=== PATIENT | female | born 1965 | race Caucasian/White ===

== ENCOUNTER 2016-09-16 12:17 | Inpatient (IN) | payer BC, SELFPAY ==
--- NOTE | ~2016-09-16 | EGD ---
EGD REPORT [facility] [address] [place] [address] NAME: KAREN STEIN : [birth year] STATUS : ADM IN PAT#: [id number] AGE: 51 ADM/REG DATE : 09/16/16 MR#: [id number] REPORT SERV DATE: 09/19/16 DICTATED BY: DEJUAN GORE DATE: 09/19/16 REPORT STATUS : Draft TRANSCRIBED BY: [facility] DATE: 09/19/16 Endoscopy Center Patient Name: Karen Stein Date of : 1965 Attending MD: DEJUAN GORE MD Procedure Date No Time: 09/19/2016 Procedure: Upper GI endoscopy Indications: Place PEG due to dysphagia Referring MD: CYN ARRIETA Medicines: Monitored Anesthesia Care Complications: No immediate complications. Estimated blood loss: Minimal. Procedure: Pre-Anesthesia Assessment: - ASA Grade Assessment: III - A patient with severe systemic disease. After obtaining informed consent, the endoscope was passed under direct vision. Throughout the procedure, the patient's blood pressure, pulse, and oxygen saturations were monitored continuously. The GIF [id number] was introduced through the mouth, and advanced to the second part of duodenum. The upper GI endoscopy was accomplished without difficulty. The patient tolerated the procedure well. Findings: No gross lesions were noted in the entire esophagus. No gross lesions were noted in the entire examined stomach. The patient was placed in the supine position for PEG placement. The stomach was insufflated to appose gastric and abdominal gao. A site was located in the body of the stomach with good transillumination and manual external pressure for placement. The abdominal wall was marked and prepped in a sterile manner. The area was anesthetized with 5 mL of 1% lidocaine. The trocar needle was introduced through the abdominal wall and into the stomach under direct endoscopic view. A snare was introduced through the endoscope and opened in the gastric lumen. The guide wire was passed through the trocar and into the open snare. The snare was closed around the guide wire. The endoscope and snare were removed, pulling the wire out through the mouth. A skin incision was made at the site of needle insertion. The externally removable 20 Fr EndoVive Safety gastrostomy tube was lubricated. The G-tube was passed over the guide wire through the mouth, and into the stomach. The trocar needle was removed, and the gastrostomy tube was pulled out from the stomach through the skin. The guide wire was removed, and the external bumper attached to the gastrostomy tube. The feeding tube was then cut to an appropriate length. The final position of the gastrostomy tube was confirmed by skin EGD REPORT [address] [place]. [address] NAME: KAREN STEIN : [birth year] STATUS : ADM IN [facility]#: [id number] AGE: 51 ADM/REG DATE : 09/16/16 MR#: [id number] REPORT SERV DATE: 09/19/16 DICTATED BY: DEJUAN GORE DATE: 09/19/16 REPORT STATUS : Draft TRANSCRIBED BY: [employer] DATE: 09/19/16 marking noted to be 1.5 cm at the external bumper. The final tension and compression of the abdominal wall by the PEG tube and external bumper were checked and revealed that the bumper was loose and lightly touching the skin. The feeding tube was capped, and the tube site was cleaned and dressed. One non-bleeding cratered duodenal ulcer with no stigmata of bleeding was found in the duodenal bulb. The lesion was 5 mm in largest dimension. Impression: - One small duodenal ulcer with clean base. - An externally removable PEG placement was successfully completed. Recommendation: - Please follow the post-PEG recommendations including: antibiotic ointment to site, change dressing once per day, clean site with soap and water daily and dry thoroughly, remove dressing after 2 weeks, NPO x4 hrs then water today, may use PEG today for meds and water and may use PEG tomorrow for feedings. - Use Protonix (pantoprazole) 40 mg PO BID for 6 weeks. Procedure Code(s): --- Professional --- 49779, Esophagogastroduodenoscopy, flexible, transoral; with directed placement of percutaneous gastrostomy tube Diagnosis Code(s): --- Professional --- K26.9, Duodenal ulcer, unspecified as acute or chronic, without hemorrhage or perforation R13.10, Dysphagia, unspecified Z43.1, Encounter for attention to gastrostomy CPT copyright 2013 [employer]. All rights reserved. The codes documented in this report are preliminary and upon rehabilitation program coordinator review may be revised to meet current compliance requirements. Dejuan Gore MD DEJUAN GORE MD 09/19/2016 8:29 AM This report has been signed electronically. Number of Addenda: 0 Note Initiated On: 09/19/2016 7:49 AM Scope Withdrawal Time 0 hours 0 minutes 0 seconds [address] [place] [address]
--- NOTE | ~2016-09-16 | HP ---
History And Physical [place] [id number] [facility] [place]. [address] NAME: KAREN KELLER : [birth year] STATUS : ADM IN [facility]#: [id number] AGE: 51 ADM/REG DATE : 09/16/16 MR#: [id number] REPORT SERV DATE: 09/17/16 DICTATED BY: DREA HUDSON DATE: 09/16/16 REPORT STATUS : Draft TRANSCRIBED BY: MODL DATE: 09/16/16 DATE OF ADMISSION: 09/16/2016 CHIEF COMPLAINT: This is a 51-year-old white female, regular patient of [facility], Dr. Byrnes and Dr. Watson, who was triaged in the emergency room today 09/16/2016 at 1043 hours complaining of shortness of breath. Her admission vital signs, blood pressure 94/69, temp 99, pulse 119, respirations 22, O2 saturation 91%. After evaluation in the emergency room by Dr. Crews, she was thought to have pneumonia, acute kidney injury, and hypoxia. She was referred to the Hospitalist Service for admission. She is now seen by the undersigned and admitted. The history is obtained from Dr. Crews, the patient, her sister who is present, her who is present, and from review of available records on [facility]. HISTORY OF PRESENT ILLNESS: For the last week, she has had increasing shortness of breath. She has had a cough productive of clear nonbloody sputum. She has not had chest pain, fever, chills, or sweats. She has become progressively weaker. She is having difficulty walking. She over the last several months has lost 29 pounds. She does not have anorexia, nausea, vomiting, abdominal pain, constipation, diarrhea, or rectal bleeding. Significantly, she had a modified barium swallow study done on 09/12/2016. Impression was beto aspiration with silent cough with thin barium, nectar honey, and pudding barium. She was referred to Dr. Velasquez for a PEG tube. Apparently, she was to have been seen today because of her respiratory symptoms, she came to the emergency room. She has not had pneumonia before. She says she has had a flu vaccination in the distant past, but not this year. She thinks she has had a pneumococcal vaccination. Significantly, she was diagnosed as having poorly differentiated carcinoma in 02/2016. She was initially seen by Dr. 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 She underwent combined chemoradiation. By her account, her treatment was successful without evident residual disease. Unfortunately, she developed an enlarging mid forehead nodule which was biopsy positive about three weeks ago. She has no history of VTE, sleep apnea, hypertension, documented coronary disease, congestive heart failure, arrhythmias, stroke, seizures, gastrointestinal bleeding, pancreatitis, or cirrhosis. She has no history of renal stones, hematuria, or previous Urology evaluations. She has no systemic rheumatic disorder and was not on immunosuppressive therapy for same. She does have a history of: 1. COPD. 2. Hepatitis question B in her childhood. 3. Depression, anxiety, and panic. 4. Remote ulcer history. History And Physical [address] [address] NAME: KAREN KELLER : [birth year] STATUS : ADM IN [facility]#: [id number] AGE: 51 ADM/REG DATE : 09/16/16 MR#: [id number] REPORT SERV DATE: 09/17/16 DICTATED BY: DREA HUDSON DATE: 09/16/16 REPORT STATUS : Draft TRANSCRIBED BY: ANGIE DATE: 09/16/16 PAST SURGICAL HISTORY: Cholecystectomy and tubal ligation. ALLERGIES OR INTOLERANCE: Codeine. HOME MEDICATIONS: From bottles in her room sertraline 100 mg daily, lorazepam 0.5 to 1 mg daily, omeprazole 20 mg daily, [place] 5/325 every 4 hours as needed. SOCIAL HISTORY: She is . She lives with her . She is retired. She continues to smoke. She drank significantly in the past, but not at this time. She has three children. Grand children live with her and her . FAMILY HISTORY: Maternal grandmother with lymphoma. Maternal uncle with lung cancer. REVIEW OF SYSTEMS: Complete, done with the patient and sister in ER 15 and negative except as noted above. PHYSICAL EXAMINATION: VITAL SIGNS: Admission ER vital signs as noted. Current vital signs O2 saturation 96% on 2 L, blood pressure 158/80, temperature 98.2, pulse 75, respirations 18. GENERAL: This is a thin, frail, acute and chronically ill-appearing older than stated age white female examined in room 15. SKIN: Warm and dry. No rash, petechiae, or ecchymoses. NODES: No palpable axillary, cervical, or inguinal. HEENT: There is a 3 x 5 cm mid forehead nodule, which has some discoloration, but is nontender. Lids, sclerae, conjunctivae negative. No xanthelasma, scleral icterus, or conjunctival petechiae or injection. Pupils are equal, round, and reactive to light. Extraocular movements intact. No nystagmus. Hearing intact. External ears negative. Ear canals and TMs normal. Nose negative. Anterior nares without mucus. Lips, gums, mucosa, hard and soft palates, posterior pharynx, tongue, gums negative. She is edentulous. NECK: There was approximately 0.5 x 1 cm oval nodule right neck. Otherwise, no palpable masses. Trachea midline. Nontender. No JVD. No thyroid enlargement. BACK: No CVA or spinal tenderness to percussion. LUNGS: Diminished breath sounds bilaterally. No audible adventitious sounds. HEART: Regular tachycardia without audible murmur, gallop, rub, or click. Pulses 2+ and symmetric radial, carotid, femoral, and dorsalis pedis. ABDOMEN: Flat, nontender to palpation. No guarding, rebound, or rigidity. Cannot feel liver, spleen, kidneys, or definite increased aortic pulsation. UPPER AND LOWER EXTREMITIES: No active synovitis, clubbing, or edema. There is diminished muscle and fat mass. NEUROLOGIC: Mental status normal. Cranial nerves 2 through 12 normal. Deep tendon reflexes symmetric. 1+ knee jerk and brachioradialis, otherwise, absent. Sensory intact to touch. Motor, symmetric strength. PSYCHIATRIC: Appropriate mood and affect for presentation. DATA: Arterial blood gases, pH 7.42, pCO2 of 39, PO2 of 80 on 28%. Sodium 131, potassium 4, History And Physical [place] [address] [id number] [place]. [address] NAME: KAREN KELLER : 61 STATUS : ADM IN [facility]#: [id number] AGE: 51 ADM/REG DATE : 09/16/16 MR#: [id number] REPORT SERV DATE: 09/17/16 DICTATED BY: DREA HUDSON DATE: 09/16/16 REPORT STATUS : Draft TRANSCRIBED BY: MODL DATE: 09/16/16 chloride 93, CO2 of 30, BUN 28, creatinine 1.43, glucose 126. Calcium 10.5, magnesium 2.8. Hepatic function panel ordered and is pending. Troponin 0.10. Procalcitonin, C-reactive protein ordered and pending. TSH and free T4 pending. BNP 92.8. Lactate ordered and pending. CBC: White count 14.7, hemoglobin 10.6, MCV 76.3, platelets 364,000. PTT 40.3, PT 13.9. EKG reviewed. No acute ST-segment changes. Chest x-ray reviewed. Hyperinflation, right middle lobe infiltrate. ASSESSMENT: This is a 51-year-old white female with: 1. Sepsis with hypotension. 2. Aspiration pneumonia. 3. Oropharyngeal dysphagia. 4. Acute kidney injury. 5. Hypercalcemia. 6. Hyponatremia. 7. Microcytic anemia. 8. Metastatic poorly differentiated carcinoma. 9. Depression, anxiety, and panic. 10.Remote ulcer history. 11.Acute on chronic pain. 12.Positive troponin. 13.Hyperlipidemia on old record review. PLAN: Complete admission data set as described above. Cultures, I believe of blood were obtained in the ER prior to receiving Cleocin. We will use standing order antimicrobial antibiotic recommendations with Rocephin, Zithromax, and metronidazole. Begin aggressive IV hydration with saline. Bronchodilators with DuoNeb, Brovana, and budesonide. Speech Therapy follow up for formal recommendations from outpatient study. GI consultation for consideration of PEG when pulmonary status allows. Hold n.p.o. except for medications. Follow up abnormal laboratory studies in a.m. and check baseline anemia testing. Provide multivitamins and thiamine with the current presentation, electrolyte and nicotine replacement protocols. Have discussed the patient's admission with Dr. Byrnes. Further diagnostic and therapeutic considerations pending above. DD/MODL Drea Hudson M.D. / [id number] CC: Pawan Vivas M.D.
--- NOTE | ~2016-09-16 | CN ---
Consultation Report [facility] [address] [place]. [address] NAME: KAREN STEIN : 61 STATUS : ADM IN PAT#: [id number] AGE: 51 ADM/REG DATE : 09/16/16 MR#: [id number] REPORT SERV DATE: 09/17/16 DICTATED BY: MARY RODRIGUEZ DATE: 09/17/16 REPORT STATUS : Draft TRANSCRIBED BY: MODL DATE: 09/17/16 GI CONSULTATION DATE OF CONSULTATION: 09/17/2016 REASON FOR CONSULTATION: Evaluation and management of patient for PEG tube. HISTORY OF PRESENT ILLNESS: Ms. Karen Stein is a 51-year-old, female patient, who was admitted to [facility] on 09/16/2016 with a chief complaint of shortness of breath, concern for aspiration pneumonia. She has a history for over the last week, she states she has had increasing shortness of breath, dyspnea, cough that has been clear. She denies any associated fevers. However, secondary to her progressive shortness of breath, her sister brought her in to [facility] for further evaluation. She was actually supposed to be seen in the outpatient setting yesterday by Dr. Sunil Velasquez as a consult for PEG tube by Dr. Byrnes, but however, secondary to her above complaint, she came to the emergency room for further evaluation. A chest x-ray showed minimal right middle lobe infiltrate or atelectasis. She had a white blood cell count of 14.7, presently it is 18.2. She is being treated with Flagyl, Rocephin, and azithromycin. She states that she is feeling somewhat better today. However, she still complains of trouble swallowing. She had a modified barium swallow study on 09/12/2016 with silent aspiration of all consistencies. She states that her weight has significantly dropped, most recently noted to be 91 pounds on her last office visit, at [facility]. She is a current smoker. She does have a history of head and neck cancer, apparently with metastatic disease. It appears she has a renal lesion, undergoing treatment with Dr. Byrnes. I have discussed with her and her sister who is currently at the bedside, we will plan to place a PEG tube at some point during this hospital stay. I did discuss the risks, the benefits, alternatives, and complications with her and her sister to include, but not limited to risk of bleeding, perforation, infection, reaction to medication, as well as cardiac and pulmonary side effects. 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 She did undergo chemotherapy as well as radiation. Appears the treatments were not successful. She had developing enlarged mid forehead nodule which did show to be biopsy positive as well as a new renal lesion. PAST MEDICAL HISTORY: Positive for COPD, hepatitis B in childhood, depression, anxiety, panic attacks, and history of peptic ulcer disease. PAST SURGICAL HISTORY: Includes a cholecystectomy and tubal ligation. SOCIAL HISTORY: , lives independently. Positive tobacco. Negative for alcohol at this time, but has a past medical history of significant intake. No illicit drugs. FAMILY HISTORY: Noncontributory from a GI standpoint. Consultation Report [address] [place]. [address] NAME: KAREN STEIN : 61 STATUS : ADM IN [facility]#: [id number] AGE: 51 ADM/REG DATE : 09/16/16 MR#: [id number] REPORT SERV DATE: 09/17/16 DICTATED BY: MARY RODRIGUEZ DATE: 09/17/16 REPORT STATUS : Draft TRANSCRIBED BY: ANGIE DATE: 09/17/16 ALLERGIES: ARE LISTED TO CODEINE. HOME MEDICATIONS: Consist of: Maalox, Robitussin, [place], Advil, Ativan, Prilosec, Zoloft, Miracle mouthwash, and Chloraseptic spray. REVIEW OF SYSTEMS: A 10-point review of systems has been obtained with pertinent positives being addressed in the history of present illness. PERTINENT LABORATORY DATA: Sodium 140, potassium 4, BUN is 24, creatinine is 1.24. White count 18.2, hemoglobin 9.0, hematocrit is 27.5, platelet count 335. INR 1.1. PHYSICAL EXAMINATION: VITAL SIGNS: Temperature 97.7, pulse 70, respirations 20, blood pressure 113/62. GENERAL: Reveals an alert, thin, frail, cachectic-appearing female, resting in bed. No obvious focal deficits. She is cooperative. She is in no acute distress. She is awake, alert, and oriented x3. Noted hoarse and raspy voice. NECK: No JVD. There is a palpable right-side neck nodule. LUNGS: Coarse and diminished with normal respiratory effort exhibited. CARDIOVASCULAR SYSTEM: Regular rhythm. ABDOMEN: Scaphoid and hypoactive. EXTREMITIES: No edema. Normal distal pulses. SKIN: Warm, dry, and intact. ASSESSMENT/PLAN: 1. Oropharyngeal dysphagia with silent aspiration of all consistencies on modified barium swallow study, 09/12/2016. 2. Recent aspiration pneumonia. 3. Sepsis, hypotension on admission. 4. Head and neck cancer, squamous cell carcinoma with metastatic disease. 5. Tobacco abuse. 6. Severe protein-calorie malnutrition. PLAN: 1. We will plan on PEG-tube placement at some point, this hospital stay. We will hopefully plan to do this on . 2. Follow her white blood cell count. 3. Nutrition recommendations noted. Other recommendations to follow endoscopy. KRISTIN/ANGIE Mary PRIYA Saldana Consultation Report [address] [address] NAME: KAREN STEIN : 61 STATUS : ADM IN [facility]#: [id number] AGE: 51 ADM/REG DATE : 09/16/16 MR#: [id number] REPORT SERV DATE: 09/17/16 DICTATED BY: MARY RODRIGUEZ DATE: 09/17/16 REPORT STATUS : Draft TRANSCRIBED BY: ANGIE DATE: 09/17/16 / [id number] CC: Pawan Vivas M.D.
--- NOTE | ~2016-09-16 | DS ---
Discharge Summary [facility] [address] [place]. [address] NAME: KAREN KELLER : 61 STATUS : DIS IN PAT#: [id number] AGE: 51 ADM/REG DATE : 09/16/16 MR#: [id number] REPORT SERV DATE: 09/22/16 DICTATED BY: SERAFIN EPSTEIN DATE: 09/21/16 REPORT STATUS : Draft TRANSCRIBED BY: MODL DATE: 09/21/16 ADMISSION DATE: 09/16/2016 DISCHARGE DATE: 09/21/2016 DISCHARGE DIAGNOSES: 1. Sepsis and right respiratory pneumonia. 2. Oropharyngeal dysphagia. 3. Frontal lobe mass, history of head and neck cancer. 4. Chronic microcytic anemia. 5. Tobacco use and chronic obstructive pulmonary disease. 6. Left pupil dilation and paresthesias, which are improved. 7. Acute kidney injury that has resolved. 8. Hyponatremia that has resolved. 9. Positive troponin. 10.History of hyperlipidemia. DISCHARGE MEDICATIONS: Augmentin 875 mg twice a day for two more days, Zoloft 100 mg daily, Dulera 200/5 two puffs inhaled twice a day, Lortab elixir 5/325 every four hours p.r.n., Ativan 1 mg twice a day p.r.n. for anxiety, Chloraseptic spray p.r.n. Maalox p.r.n., Pepcid 20 mg down the PEG twice a day, Osmolite tube feeding four cans daily, and free water 150 mL four times a day. HISTORY OF PRESENT ILLNESS: This 51-year-old white female presented to the [facility] Emergency Room with complaints of shortness of breath. Please see initial H and P of Dr. Maxwell Miller. This patient was admitted to the Hospitalist Service for further evaluation and treatment. CONSULTANTS DURING THIS ADMISSION: 1. [facility], Dr. Byrnes. 2. GI, Dr. Walton and Balaji Bautista, nurse practitioner. PROCEDURES AND IMAGING DURING THIS ADMISSION: CT scan of the brain on 09/18/2016 that showed a large, destructive, probably metastatic frontal mass in a patient with a history of poorly differentiated squamous cell carcinoma. A CT of the neck showing residual soft tissue mass in the right supraglottic larynx extending from the piriform sinus to the level of the true vocal cord. Improving right neck adenopathy with the largest remaining lymph node at level 2 measuring approximately 3 x 2.5 cm. Upper GI endoscopy lab for PEG tube placement performed on 09/19/2016. HOSPITAL COURSE: The patient was initially given empiric antibiotic therapy. Cultures were obtained. Lab work was ordered and followed. I began seeing the patient beginning on 09/17/2016 where her overall symptoms of shortness of breath had begun to improve. She was feeling some better. Her antibiotics were continued as well as IV fluid for her acute kidney injury. After discussion with Balaji Bautista, nurse practitioner with GI, it was determined that she would be getting a PEG tube for further nutrition as the patient had failed a recent modified barium swallow study which was positive for aspiration. Her Discharge Summary [address] [place]. [address] NAME: KAREN KELLER : 61 STATUS : DIS IN PAT#: [id number] AGE: 51 ADM/REG DATE : 09/16/16 MR#: [id number] REPORT SERV DATE: 09/22/16 DICTATED BY: SERAFIN EPSTENI DATE: 09/21/16 REPORT STATUS : Draft TRANSCRIBED BY: ANGIE DATE: 09/21/16 hyponatremia had begun to resolve. Her troponin had trended downward, and I did speak with her extensively about the need to quit smoking. I discussed the case with [facility], Dr. Byrnes, who will follow up with the patient after hospitalization for further treatment. She continued to improve. Her acute kidney injury resolved, but on the evening of 09/18/2016, I was called to the patient's room where she had a severely dilated left pupil that was only limited response to light and accommodation. She was, however, having no other symptoms besides some paresthesias to her lower extremities with a chin-to- sternum flexion. She was alert oriented and had no focal symptoms. I obtained a CT scan of the head and neck, which is described above and discussed these at length again with Dr. Byrnes of [facility]. After the patient was given some dexamethasone, her pupil returned to normal, and she had no more symptoms of paresthesias. Her PEG tube was placed with success, and she recovered well from that. Tube feed was able to be initiated and advanced to a goal rate. Her Decadron was weaned down, and she was felt safe for discharge home on 09/21/2016 with the above medication regimen and followup plan with [facility] on 09/24/2016. She will have home health to follow up with her this coming Friday. Nursing for instruction of bolus tube feeds and flushes. Again, I have had a lengthy discussion with the need to stop smoking. I have updated the patient at bedside. Questions were answered extensively with both the patient and her . They are in agreement with the plan going forward. I appreciate the cost consultant's help on this patient's care while hospitalized. Please note that greater than 30 minutes was spent on this discharge for medication teaching, followup planning, and further disposition. CSC/MODL Serafin Epstein NP / [id number] CC: Pawan Vivas M.D.
[2016-09-16 11:00] LABS: BASOPHILS 0 %; EOSINOPHILS 0 %; IMMATURE GRANULOCYTES 0.1 %; IMMATURE GRANULOCYTES ABSOLUTE 0.01 10/3/uL (0.0-0.11); MEAN CORPUS HGB CONC 32.6 g/dL (32.0-36.0); MEAN CORPUSCULAR HEMOGLOB 24.9 pg (26.0-34.0); MEAN PLATELET VOLUME 8.8 fL (9.2-13.0); MONOCYTES 4.1 %; MONOCYTES ABSOLUTE 0.61 10/3/uL (0.21-1.20); NEUTROPHILS 93.8 %; PLATELET COUNT 364 10/3/uL (150-400); RBC DISTRIBUTION WIDTH 12.8 % (12.0-16.0)
[2016-09-16 11:01] LABS: HEMOGLOBIN 10.6 g/dL (12.0-16.0); RED CELL COUNT 4.26 10/6/uL (4.0-5.6); WHITE BLOOD CELLS 14.7 10/3/uL (4.5-10.5)
[2016-09-16 11:02] LABS: ER CBC TAT 0 Hrs 06 MinsNP; HEMATOCRIT 32.5 % (36.0-48.0); MANUAL DIFF NO %; MEAN CORPUSCULAR VOLUME 76.3 fL (80-100)
[2016-09-16 11:09] LABS: INTERNATIONAL NORMAL RATI 1.1 UNITS (-); PARTIAL THROMBO TIME 40.3 SEC (22.5-37.2); PROTIME (NOT ORD) 13.9 SEC (12.0-14.5)
[2016-09-16 11:16] LABS: CALCIUM, SERUM 10.5 MG/DL (8.5-10.4); SODIUM, SERUM 131 MMOL/L (135-148)
[2016-09-16 11:17] LABS: BUN (BLOOD UREA NITROGEN) 28 MG/DL (6-23); CHEST PAIN PROFILE TAT 0 Hrs 22 Mins; CHLORIDE, SERUM 93 MMOL/L (96-112); CO2 (CARBON DIOXIDE) 30 MMOL/L (24-34); CREATININE 1.43 MG/DL (0.55-1.02); GFR AFRICAN AMERICAN 48 ML/MIN (>=60); GFR NON AFRICAN AMERICAN 42 ML/MIN (>=60); GLUCOSE, SERUM 126 MG/DL (60-99)
[2016-09-16 11:49] LABS: BE (BASE EXCESS) 0.4 MEQ/L (0 +/- 2.5); DEVICE NC; HCO3 (ACTUAL BICARBONATE) 24.7 MEQ/L (23-27); HEMOBLOGIN CONTENT 11.2 G/DL (12-16); INSTRUMENT SERIAL # 8087; METHEMOGLOBIN 0.1 % (0-3); O2 CONTENT 14.5 VOL% (18-24); OPERATOR ID 32214; PCO2 (CO2 TENSION) 39 MMHG (35-45); PO2 (O2 TENSION) 80 MMHG (79-93); SAMPLE Arterial; pH 7.42 (7.37-7.43)
[2016-09-16] MEDS ORDERED: PRILO PO (15:04)
[2016-09-16] MEDS ORDERED: NORCO1 TA1 PO (15:04)
[2016-09-16] MEDS ORDERED: ATV.5 PO (15:05)
[2016-09-16] MEDS ORDERED: MIRACLE MOUTHWASH PO (15:05)
[2016-09-16] MEDS ORDERED: ZOL100 PO (15:06)
[2016-09-16] MEDS ORDERED: CHLOROSEPTIC SPRAY PO (15:06)
[2016-09-16] MEDS ORDERED: GGDM5ML PO (15:06)
[2016-09-16] MEDS ORDERED: MAALOX PO (15:07)
[2016-09-16] MEDS ORDERED: ADVIL PO (15:08)
[2016-09-16 17:39] LABS: ALBUMIN 4.3 G/DL (3.5-5.0); DIRECT BILIRUBIN 0.1 MG/DL (0.0-0.4); FERRITIN 164 NG/ML (8-252); FREE T4 1.08 NG/DL (0.76-1.46); INDIRECT BILIRUBIN(NOT ORDER) 0.2 MG/DL (0.1-0.9); IRON BINDING CAPACITY 227 MCG/DL (225-410); IRON, SERUM 19 MCG/DL (35-150); SGOT(AST) 19 U/L (5-40); SGPT(ALT) 16 U/L (5-65); TOTAL BILIRUBIN 0.3 MG/DL (0-1.2); TOTAL PROTEIN 8.2 G/DL (6.0-8.5)
[2016-09-16 17:41] LABS: ALKALINE PHOSPHATASE 111 U/L (45-117)
[2016-09-16 17:56] LABS: C-REACTIVE PROTEIN 41.8 MG/L (<8.0)
[2016-09-16 20:29] LABS: PROCALCITONIN 0.19 ng/mL (<0.5)
[2016-09-17 05:02] LABS: BASOPHILS 0.1 %; BASOPHILS ABSOLUTE 0.01 10/3/uL (0.0-0.16); EOSINOPHILS 0 %; IMMATURE GRANULOCYTES 0.2 %; IMMATURE GRANULOCYTES ABSOLUTE 0.04 10/3/uL (0.0-0.11); LYMPHOCYTES 3.9 %; LYMPHOCYTES ABSOLUTE 0.71 10/3/uL (0.67-4.30); MEAN CORPUS HGB CONC 32.7 g/dL (32.0-36.0); MEAN CORPUSCULAR HEMOGLOB 24.9 pg (26.0-34.0); MEAN CORPUSCULAR VOLUME 76.2 fL (80-100); MEAN PLATELET VOLUME 9.1 fL (9.2-13.0); MONOCYTES 5.2 %; MONOCYTES ABSOLUTE 0.95 10/3/uL (0.21-1.20); NEUTROPHILS 90.6 %; NEUTROPHILS ABSOLUTE 16.53 10/3/uL (2.02-8.40); PLATELET COUNT 335 10/3/uL (150-400); RBC DISTRIBUTION WIDTH 12.7 % (12.0-16.0); RED CELL COUNT 3.61 10/6/uL (4.0-5.6); WHITE BLOOD CELLS 18.2 10/3/uL (4.5-10.5)
[2016-09-17 05:07] LABS: HEMATOCRIT 27.5 % (36.0-48.0); MANUAL DIFF NO %
[2016-09-17 05:20] LABS: CO2 (CARBON DIOXIDE) 28 MMOL/L (24-34); CREATININE 1.24 MG/DL (0.55-1.02); GFR AFRICAN AMERICAN 57 ML/MIN (>=60); GFR NON AFRICAN AMERICAN 50 ML/MIN (>=60); GLUCOSE, SERUM 111 MG/DL (60-99)
[2016-09-17 05:27] LABS: BUN (BLOOD UREA NITROGEN) 24 MG/DL (6-23); CALCIUM, SERUM 8.7 MG/DL (8.5-10.4); CHLORIDE, SERUM 103 MMOL/L (96-112); SODIUM, SERUM 140 MMOL/L (135-148); TROPONIN I 0.05 NG/ML (<0.05)
[2016-09-17 05:47] LABS: ASCORBIC ACID (UR NOT ORDER) NEG (NEG); BILIRUBIN, URINE NEGATIVE (NEG); KETONE, URINE TRACE MG/DL (NEG); LEUKOCYTE ESTERASE(NOT OR NEG (NEG); WBC (NOT ORDERED) (RFLEX) 2 (0-5)
[2016-09-18 06:21] LABS: BASOPHILS 0.1 %; BASOPHILS ABSOLUTE 0.01 10/3/uL (0.0-0.16); EOSINOPHILS 0.2 %; EOSINOPHILS ABSOLUTE 0.02 10/3/uL (0.0-0.53); HEMATOCRIT 25.1 % (36.0-48.0); HEMOGLOBIN 8.1 g/dL (12.0-16.0); IMMATURE GRANULOCYTES 0.3 %; IMMATURE GRANULOCYTES ABSOLUTE 0.03 10/3/uL (0.0-0.11); LYMPHOCYTES 3.6 %; MEAN CORPUS HGB CONC 32.3 g/dL (32.0-36.0); MEAN CORPUSCULAR HEMOGLOB 24.6 pg (26.0-34.0); MEAN CORPUSCULAR VOLUME 76.3 fL (80-100); MEAN PLATELET VOLUME 8.9 fL (9.2-13.0); MONOCYTES 5.3 %; MONOCYTES ABSOLUTE 0.59 10/3/uL (0.21-1.20); NEUTROPHILS 90.5 %; NEUTROPHILS ABSOLUTE 10.12 10/3/uL (2.02-8.40); PLATELET COUNT 316 10/3/uL (150-400); RBC DISTRIBUTION WIDTH 12.9 % (12.0-16.0); RED CELL COUNT 3.29 10/6/uL (4.0-5.6); WHITE BLOOD CELLS 11.2 10/3/uL (4.5-10.5)
[2016-09-18 06:22] LABS: MANUAL DIFF NO %
[2016-09-18 06:26] LABS: INTERNATIONAL NORMAL RATI 1.1 UNITS (-); PROTIME (NOT ORD) 14.4 SEC (12.0-14.5)
[2016-09-18 06:34] LABS: CALCIUM, SERUM 8.8 MG/DL (8.5-10.4); CHLORIDE, SERUM 108 MMOL/L (96-112); CO2 (CARBON DIOXIDE) 25 MMOL/L (24-34); CREATININE 0.94 MG/DL (0.55-1.02); GFR AFRICAN AMERICAN 80 ML/MIN (>=60); GFR NON AFRICAN AMERICAN 69 ML/MIN (>=60); POTASSIUM, SERUM 3.5 MMOL/L (3.5-5.3); SODIUM, SERUM 143 MMOL/L (135-148)
[2016-09-18 06:36] LABS: BUN (BLOOD UREA NITROGEN) 18 MG/DL (6-23); GLUCOSE, SERUM 84 MG/DL (60-99)
[2016-09-19 05:52] LABS: BASOPHILS 0.1 %; BASOPHILS ABSOLUTE 0.01 10/3/uL (0.0-0.16); EOSINOPHILS 0 %; HEMATOCRIT 26.7 % (36.0-48.0); HEMOGLOBIN 8.8 g/dL (12.0-16.0); IMMATURE GRANULOCYTES 0.4 %; IMMATURE GRANULOCYTES ABSOLUTE 0.04 10/3/uL (0.0-0.11); LYMPHOCYTES 1.8 %; LYMPHOCYTES ABSOLUTE 0.17 10/3/uL (0.67-4.30); MEAN CORPUSCULAR HEMOGLOB 24.9 pg (26.0-34.0); MEAN CORPUSCULAR VOLUME 75.6 fL (80-100); MEAN PLATELET VOLUME 9.1 fL (9.2-13.0); MONOCYTES 0.8 %; MONOCYTES ABSOLUTE 0.08 10/3/uL (0.21-1.20); NEUTROPHILS 96.9 %; NEUTROPHILS ABSOLUTE 9.26 10/3/uL (2.02-8.40); PLATELET COUNT 358 10/3/uL (150-400); RBC DISTRIBUTION WIDTH 13.1 % (12.0-16.0); RED CELL COUNT 3.53 10/6/uL (4.0-5.6); WHITE BLOOD CELLS 9.6 10/3/uL (4.5-10.5)
[2016-09-19 05:56] LABS: INTERNATIONAL NORMAL RATI 1.2 UNITS (-)
[2016-09-19 06:02] LABS: MANUAL DIFF NO %
[2016-09-19 06:03] LABS: BUN (BLOOD UREA NITROGEN) 17 MG/DL (6-23); CALCIUM, SERUM 9.3 MG/DL (8.5-10.4); CHLORIDE, SERUM 107 MMOL/L (96-112); CREATININE 0.87 MG/DL (0.55-1.02); GFR AFRICAN AMERICAN 88 ML/MIN (>=60); GFR NON AFRICAN AMERICAN 76 ML/MIN (>=60); GLUCOSE, SERUM 95 MG/DL (60-99); PHOSPHORUS, SERUM 2.8 MG/DL (2.5-4.5); POTASSIUM, SERUM 3.7 MMOL/L (3.5-5.3); SODIUM, SERUM 142 MMOL/L (135-148)
[2016-09-19 06:10] LABS: CO2 (CARBON DIOXIDE) 19 MMOL/L (24-34)
[2016-09-21] MEDS ORDERED: HYCET 7.5 MG-3473 ML PO (16:33)
[2016-09-21] MEDS ORDERED: DULERA 200 MCG/13 GM INH (16:34)
[2016-09-21] MEDS ORDERED: AUG875 PO (16:35)
[2016-09-21] MEDS ORDERED: PROAIR HFA INH (16:36)
[2016-09-21] MEDS ORDERED: ATV1 PO (16:36)
[2016-09-21] MEDS ORDERED: HABIT14 TOP (17:21)
[2016-11-21] MEDS ORDERED: D.O.S.100 MG PO (10:33)
[2016-11-21] MEDS ORDERED: ZOL100 PO (10:33)
[2016-11-21] MEDS ORDERED: PRILO PO (10:34)
[2016-11-21] MEDS ORDERED: DULERA 200 MCG/13 GM INH (10:34)
[2016-11-21] MEDS ORDERED: OXYCOD PO (10:34)
[2016-11-21] MEDS ORDERED: LEVOTHYROXIN50 MCG PO (10:35)
[2016-11-21] MEDS ORDERED: PROAIR HFA INH (10:35)
[2016-11-21] MEDS ORDERED: ATV1 PO (10:35)
== END 2016-09-21 19:12 | disposition home health service (06) | DRG 871 ==
LOC: ER 12:17 → 4SO 14:50
PROVIDERS: Emergency Medicine; Internal Medicine; Internal Medicine Gastroenterology; Nurse Practitioner Family
PROC: 0DH63UZ Insertion of Feeding Device into Stomach, Percutaneous Approach (ICD-10-PCS; principal; 2016-09-19 07:00)
PROC: 0DJ08ZZ Inspection of Upper Intestinal Tract, Via Natural or Artificial Opening Endoscopic (ICD-10-PCS; principal; 2016-09-19 07:00)
PROC: 3E0G76Z Introduction of Nutritional Substance into Upper GI, Via Natural or Artificial Opening (ICD-10-PCS; 2016-09-20)
DX: A41.9 Sepsis, unspecified organism (principal); E43 Unspecified severe protein-calorie malnutrition; J69.0 Pneumonitis due to inhalation of food and vomit; N17.9 Acute kidney failure, unspecified; C79.00 Secondary malignant neoplasm of unspecified kidney and renal pelvis; C79.2 Secondary malignant neoplasm of skin; K26.9 Duodenal ulcer, unspecified as acute or chronic, without hemorrhage or perforation; E87.1 Hypo-osmolality and hyponatremia; Z68.1 Body mass index [BMI] 19.9 or less, adult; E83.52 Hypercalcemia; R13.12 Dysphagia, oropharyngeal phase; J44.9 Chronic obstructive pulmonary disease, unspecified; G89.29 Other chronic pain; F41.8 Other specified anxiety disorders; F17.210 Nicotine dependence, cigarettes, uncomplicated; Z79.899 Other long term (current) drug therapy; Z86.19 Personal history of other infectious and parasitic diseases; Z87.11 Personal history of peptic ulcer disease; Z88.5 Allergy status to narcotic agent; F32.9 Major depressive disorder, single episode, unspecified; E78.5 Hyperlipidemia, unspecified; Z85.831 Personal history of malignant neoplasm of soft tissue; Z92.21 Personal history of antineoplastic chemotherapy; Z92.3 Personal history of irradiation; Z79.891 Long term (current) use of opiate analgesic; R65.20 Severe sepsis without septic shock; D63.0 Anemia in neoplastic disease; D43.0 Neoplasm of uncertain behavior of brain, supratentorial; H57.04 Mydriasis; R20.8 Other disturbances of skin sensation
CPT/HCPCS: 36600; 70450; 70490; 71010; 71020; 80048; 80076; 81001; 82330; 82607; 82728; 82805; 82962; 83540; 83550; 83605; 83735; 83880; 84100; 84145; 84439; 84484; 85025; 85610; 85730; 86140; 87040; 93005; 93306; 94640; 96365; 96366; 96375; 99291; A9270-GY; C9113; J0456; J0690; J2930